=== PATIENT | male | born 1980 | race African-American/Black ===

== ENCOUNTER 2017-02-05 14:52 | Emergency (ER) | payer MEDICAID, SELFPAY ==
[~2017-02-05] VITALS: Ht 182.9 cm; Wt 95.5 kg
[2017-02-05 16:09] LABS: BASOPHILS # (AUTO) 0.09 K/uL (0.00-0.20); BASOPHILS % (AUTO) 1.6 % (0.0-2.0); EOSINOPHILS % (AUTO) 5.56 % (1.0-6.0); HEMATOCRIT 40.2 % (41-53); HEMOGLOBIN 13.1 g/dL (13.5-17.5); LYMPHOCYTES # (AUTO) 2.1 K/uL (1.0-4.8); LYMPHOCYTES % (AUTO) 39.5 % (22.0-44.0); MEAN CORPUSCULAR HEMOGLOBIN 26.7 pg (26.0-34.0); MEAN CORPUSCULAR HGB CONC 32.6 G/dL (31.0-37.0); MEAN CORPUSCULAR VOLUME 82 fL (80-100); MONOCYTES # (AUTO) 0.4 K/uL (0.1-1.0); MONOCYTES % (AUTO) 7.4 % (2.0-9.0); NEUTROPHILS # (AUTO) 2.5 K/uL (1.8-7.7); NEUTROPHILS % (AUTO) 45.9 % (40.0-70.0); PLATELET COUNT (AUTO) 198 K/uL (150-450); RED CELL DISTRIBUTION WIDTH 15.5 % (11.5-14.5)
[2017-02-05 16:21] LABS: ANION GAP 11 mmol/L (8-16); CALCIUM, TOTAL 8.7 mg/dL (8.8-10.5); CARBON DIOXIDE 25 mmol/L (22-29); CHLORIDE 103 mmol/L (98-107); CREATININE 1.24 mg/dL (0.60-1.30); GLOMERULAR FILTR. RATE CALC > 60 mL/min (>60); GLUCOSE,RANDOM 121 mg/dL (70-110); POTASSIUM 4.1 mmol/L (3.5-5.1); SODIUM SERUM 139 mmol/L (136-145); UREA NITROGEN, BLOOD 12 mg/dL (7-18)
[2017-02-05 16:22] LABS: AMPHET/METH SCREEN,URINE NEGATIVE (NEGATIVE); BARBITURATE SCREEN, URINE NEGATIVE (NEGATIVE); BENZODIAZEPINES SCREEN,URINE NEGATIVE (NEGATIVE); CANNABINOID SCREEN,URINE NEGATIVE (NEGATIVE); COCAINE SCREEN,URINE NEGATIVE (NEGATIVE); METHADONE SCREEN, URINE NEGATIVE (NEGATIVE); OPIATE SCREEN,URINE NEGATIVE (NEGATIVE)
[2017-02-05 16:24] LABS: PHENCYCLIDINE SCREEN,URINE NEGATIVE (NEGATIVE)
[2017-02-05 16:26] LABS: ALANINE AMINOTRANSFERASE 38 U/L (12-78); ALKALINE PHOSPHATASE 59 U/L (46-116); ASPARTATE AMINOTRANSFERASE 76 U/L (15-37); BILIRUBIN,TOTAL 0.7 mg/dL (0.1-1.0); TOTAL PROTEIN, SERUM 7.8 g/dL (6.4-8.2)
[2017-02-05 19:00] VITALS: BP 137/88
== END 2017-02-05 19:01 | disposition home or self-care (01) ==
LOC: EMS 14:54
DX: F31.9 Bipolar disorder, unspecified (principal)
CPT/HCPCS: 36415; 80053; 80307; 82962; 85025; 99285; G0480

== ENCOUNTER 2017-02-05 23:27 | Inpatient (IN) | payer MEDICAID, SELFPAY ==
[~2017-02-05] VITALS: Ht 182.9 cm; Wt 89.8 kg
[2017-02-05 23:47] LABS: GLUCOSE,POINT OF CARE 120 MG/DL (70-110)
[2017-02-06] MEDS ORDERED: LORazepam 2 MG TABLET PO PRN (04:15)
[2017-02-06] MEDS ORDERED: HALOPERIDOL 5 MG TABLET PO PRN (04:15)
[2017-02-06 04:25] LABS: BASOPHILS # (AUTO) 0.04 K/uL (0.00-0.20); BASOPHILS % (AUTO) 0.7 % (0.0-2.0); EOSINOPHILS # (AUTO) 0.36 K/uL (0.00-0.70); EOSINOPHILS % (AUTO) 6.56 % (1.0-6.0); HEMOGLOBIN 13.2 g/dL (13.5-17.5); LYMPHOCYTES # (AUTO) 2.4 K/uL (1.0-4.8); LYMPHOCYTES % (AUTO) 44.2 % (22.0-44.0); MEAN CORPUSCULAR HGB CONC 32.9 G/dL (31.0-37.0); MEAN CORPUSCULAR VOLUME 82 fL (80-100); MONOCYTES # (AUTO) 0.6 K/uL (0.1-1.0); MONOCYTES % (AUTO) 10.5 % (2.0-9.0); NEUTROPHILS # (AUTO) 2.1 K/uL (1.8-7.7); PLATELET COUNT (AUTO) 177 K/uL (150-450); RED BLOOD CELL COUNT(AUTO) 4.88 MIL/uL (4.50-5.90); RED CELL DISTRIBUTION WIDTH 14.9 % (11.5-14.5)
[2017-02-06 04:29] LABS: ANION GAP 6 mmol/L (8-16); CALCIUM, TOTAL 8.4 mg/dL (8.8-10.5); CARBON DIOXIDE 27 mmol/L (22-29); CHLORIDE 105 mmol/L (98-107); GLOMERULAR FILTR. RATE CALC > 60 mL/min (>60); GLUCOSE,RANDOM 94 mg/dL (70-110); POTASSIUM 3.9 mmol/L (3.5-5.1); SODIUM SERUM 138 mmol/L (136-145); UREA NITROGEN, BLOOD 15 mg/dL (7-18)
[2017-02-06] MEDS ORDERED: DiphenhydrAMINE HCL 50 MG/ML VIAL ONE (04:30)
[2017-02-06] MEDS ORDERED: HALOPERIDOL LACTATE 5 MG/ML VIAL ONE (04:30)
[2017-02-06] MEDS ORDERED: LORazepam 2 MG/ML VIAL ONE (04:30)
[2017-02-06 04:35] LABS: ALANINE AMINOTRANSFERASE 37 U/L (12-78); ALBUMIN 3.6 g/dL (3.4-5.0); ALKALINE PHOSPHATASE 52 U/L (46-116); ASPARTATE AMINOTRANSFERASE 67 U/L (15-37); BILIRUBIN,TOTAL 0.7 mg/dL (0.1-1.0); TOTAL PROTEIN, SERUM 6.8 g/dL (6.4-8.2)
[2017-02-06] MEDS: HALOPERIDOL 5 MG TABLET PO ONE ×2 (04:35→04:54)
[2017-02-06] MEDS: DiphenhydrAMINE HCL 25 MG CAPSULE PO ONE ×2 (04:35→04:54)
[2017-02-06] MEDS: LORazepam 2 MG TABLET PO ONE ×2 (04:35→04:53)
[2017-02-06] MEDS ORDERED: LORazepam 2 MG/ML VIAL IM ONE (04:45)
[2017-02-06] MEDS ORDERED: DiphenhydrAMINE HCL 50 MG/ML VIAL IM ONE (04:45)
[2017-02-06] MEDS ORDERED: HALOPERIDOL LACTATE 5 MG/ML VIAL IM ONE (04:45)
[2017-02-06 05:41] VITALS: BP 119/64
[2017-02-06] MEDS ORDERED: INFLUENZA VIRUS VACCINE QVS 2017-18 (3YR+)/PF 60 MCG/0.5 ML SYRINGE IM ONE (06:00)
[2017-02-06] MEDS ORDERED: PNEUMOCOCCAL VACCINE POLYVALENT 0.5 ML VIAL [PPSV23] IM ONE (06:00)
[2017-02-06 07:37] LABS: GLUCOMETER DEV NAME(LOC) BV2N3; GLUCOSE,POINT OF CARE 92 MG/DL (70-110)
[2017-02-06] MEDS ORDERED: BACITRACIN 28.4 GM OINTMENT TP PRN (08:00)
[2017-02-06] MEDS ORDERED: MAG HYDROX/AL HYDROX/SIMETH ES 30 ML SUSPENSION UDCUP PO PRN (08:00)
[2017-02-06] MEDS ORDERED: ONDANSETRON HCL 4 MG TABLET PO PRN (08:00)
[2017-02-06] MEDS ORDERED: ALBUTEROL SULFATE HFA 90 MCG/PUFF 8 GM INHALER IH PRN (08:00)
[2017-02-06] MEDS ORDERED: IBUPROFEN 600 MG TABLET PO PRN (08:00)
[2017-02-06] MEDS ORDERED: BENZOCAINE/MENTHOL LOZENGE MM PRN (08:00)
[2017-02-06] MEDS ORDERED: MAGNESIUM HYDROXIDE SUSPENSION 30 ML UDCUP PO PRN (08:00)
[2017-02-06] MEDS ORDERED: ACETAMINOPHEN 325 MG TABLET PO PRN (08:00)
[2017-02-06] MEDS ORDERED: LOPERAMIDE HCL 2 MG CAPSULE PO PRN (08:00)
[2017-02-06] MEDS ORDERED: PETROLATUM,WHITE 71 GM JELLY TP PRN (08:00)
[2017-02-06] MEDS ORDERED: CloNIDine HCL 0.1 MG TABLET PO PRN (08:00)
[2017-02-06 08:28] VITALS: BP 110/60
[2017-02-06] MEDS: SERTRALINE HCL 50 MG TABLET PO SCH (11:15)
[2017-02-06 16:28] VITALS: BP 116/86
[2017-02-07 00:56] VITALS: BP 126/59
[2017-02-07 08:05] LABS: HEMOGLOBIN A1C 5.9 % (4.5-6.2)
[2017-02-07 08:10] VITALS: BP 117/71
[2017-02-07] MEDS: SERTRALINE HCL 50 MG TABLET PO SCH (08:10)
[2017-02-07 09:32] LABS: CHOL/HDL RATIO 2.2 (4.2-7.3); THYROID STIMULATING HORMONE 0.47 uIU/mL (0.36-3.74)
[2017-02-07 16:02] VITALS: BP 123/70
[2017-02-07] MEDS: ZOLPIDEM TARTRATE 10 MG TABLET PO PRN (21:08)
[2017-02-07 23:29] LABS: GLUCOMETER DEV NAME(LOC) BV2N3; GLUCOSE,POINT OF CARE 111 MG/DL (70-110)
[2017-02-08 04:27] VITALS: BP 111/63
[2017-02-08 08:30] VITALS: BP 122/69
[2017-02-08] MEDS: SERTRALINE HCL 50 MG TABLET PO SCH (08:30)
[2017-02-08 16:30] VITALS: BP 109/63
[2017-02-08] MEDS: ZOLPIDEM TARTRATE 10 MG TABLET PO PRN (20:46)
[2017-02-09 00:40] VITALS: BP 124/61
[2017-02-09] MEDS: SERTRALINE HCL 50 MG TABLET PO SCH (08:10)
[2017-02-09 08:20] VITALS: BP 125/86
[2017-02-09] MEDS ORDERED: SERT50TA12 PO (11:04)
[2017-02-09] MEDS ORDERED: ALBU8HFA IH (11:15)
== END 2017-02-09 15:45 | disposition home or self-care (01) | DRG 751 ==
LOC: EMS 23:29 → B2S 02-06 04:15
PROVIDERS: ADMIT Psychiatry & Neurology Child & Adolescent Psychiatry; ATTEND Psychiatry & Neurology Child & Adolescent Psychiatry
DX: F33.2 Major depressive disorder, recurrent severe without psychotic features (principal); R45.851 Suicidal ideations; E83.51 Hypocalcemia; E66.9 Obesity, unspecified; G47.00 Insomnia, unspecified; R73.9 Hyperglycemia, unspecified; R74.0 Nonspecific elevation of levels of transaminase and lactic acid dehydrogenase [LDH]; Z59.0 Homelessness; Z68.26 Body mass index [BMI] 26.0-26.9, adult
CPT/HCPCS: 80074; 82306; 82962; 83036; 84443; 96372; 99285; G0480; J1200; J1630; J2060; J3535

== ENCOUNTER 2018-07-02 12:32 | Emergency (ER) | payer MEDICAID ==
[~2018-07-02] VITALS: Ht 182.9 cm; Wt 100.0 kg
[~2018-07-02 12:32] MED LIST: ALBU8HFA IH; SERT50TA12 PO
[2018-07-02 16:54] VITALS: BP 137/51
[2018-07-02 19:44] LABS: GLUCOSE,POINT OF CARE 85 MG/DL (70-110)
== END 2018-07-02 17:23 | disposition home or self-care (01) ==
LOC: EMS 12:33
DX: F32.9 Major depressive disorder, single episode, unspecified (principal); E11.9 Type 2 diabetes mellitus without complications; F12.90 Cannabis use, unspecified, uncomplicated

== ENCOUNTER 2019-08-04 10:30 | Inpatient (IN) | payer MEDICARE, MEDICAID ==
[~2019-08-04] VITALS: Ht 185.4 cm; Wt 97.7 kg
[~2019-08-04 10:30] MED LIST changes: -ALBU8HFA IH
[2019-08-04] MEDS ORDERED: RISP2 PO (10:44)
[2019-08-04] MEDS ORDERED: HALOPERIDOL 5 MG TABLET PO PRN (12:30)
[2019-08-04] MEDS ORDERED: LORazepam 2 MG TABLET PO PRN (12:30)
[2019-08-04] MEDS ORDERED: ZOLPIDEM TARTRATE 10 MG TABLET PO PRN (12:30)
[2019-08-04 13:06] LABS: ANION GAP 8 mmol/L (8-16); CALCIUM, TOTAL 8.7 mg/dL (8.8-10.5); CARBON DIOXIDE 28 mmol/L (22-29); CHLORIDE 107 mmol/L (98-107); CREATININE 1.45 mg/dL (0.60-1.30); GLOMERULAR FILTR. RATE CALC > 60 mL/min (>60); GLUCOSE,RANDOM 111 mg/dL (70-110); SODIUM SERUM 143 mmol/L (136-145); UREA NITROGEN, BLOOD 16 mg/dL (7-18)
[2019-08-04 13:08] LABS: BASOPHILS % (AUTO) 0.6 % (0.0-2.0); EOSINOPHILS % (AUTO) 2.1 % (1.0-6.0); HEMATOCRIT 41.3 % (41-53); HEMOGLOBIN 13.6 g/dL (13.5-17.5); LYMPHOCYTES # (AUTO) 1.9 K/uL (1.0-4.8); MEAN CORPUSCULAR HEMOGLOBIN 27.3 pg (26.0-34.0); MEAN CORPUSCULAR VOLUME 83 fL (80-100); MONOCYTES # (AUTO) 0.4 K/uL (0.1-1.0); MONOCYTES % (AUTO) 6.6 % (2.0-9.0); NEUTROPHILS # (AUTO) 3.4 K/uL (1.8-7.7); NEUTROPHILS % (AUTO) 58.7 % (40.0-70.0); PLATELET COUNT (AUTO) 235 K/uL (150-450); RED BLOOD CELL COUNT(AUTO) 4.99 MIL/uL (4.50-5.90); RED CELL DISTRIBUTION WIDTH 14.1 % (11.5-14.5)
[2019-08-04 13:12] LABS: ALANINE AMINOTRANSFERASE 19 U/L (12-78); ALBUMIN 3.9 g/dL (3.4-5.0); ALKALINE PHOSPHATASE 73 U/L (46-116); ASPARTATE AMINOTRANSFERASE 21 U/L (15-37); BILIRUBIN,TOTAL 0.8 mg/dL (0.1-1.0); TOTAL PROTEIN, SERUM 7.5 g/dL (6.4-8.2)
[2019-08-04 16:23] VITALS: BP 128/82
[2019-08-04] MEDS ORDERED: ALBUTEROL SULFATE HFA 90 MCG/PUFF 8 GM INHALER IH PRN (18:30)
[2019-08-04] MEDS ORDERED: MAG HYDROX/AL HYDROX/SIMETH ES 30 ML SUSPENSION UDCUP PO PRN (18:30)
[2019-08-04] MEDS ORDERED: ACETAMINOPHEN 325 MG TABLET PO PRN (18:30)
[2019-08-04] MEDS ORDERED: LOPERAMIDE HCL 2 MG CAPSULE PO PRN (18:30)
[2019-08-04] MEDS ORDERED: DOCUSATE SODIUM 100 MG CAPSULE PO PRN (18:30)
[2019-08-04] MEDS ORDERED: MAGNESIUM HYDROXIDE SUSPENSION 30 ML UDCUP PO PRN (18:30)
[2019-08-04] MEDS ORDERED: OMEPRAZOLE 20 MG CAPSULE PO PRN (18:30)
[2019-08-04] MEDS ORDERED: BENZOCAINE/MENTHOL LOZENGE MM PRN (18:30)
[2019-08-04] MEDS ORDERED: BACITRACIN 28.4 GM OINTMENT TP PRN (18:30)
[2019-08-04] MEDS ORDERED: PETROLATUM,WHITE 28 GM JELLY TP PRN (18:30)
[2019-08-04] MEDS ORDERED: CloNIDine HCL 0.1 MG TABLET PO PRN (18:30)
[2019-08-04] MEDS ORDERED: ONDANSETRON HCL 4 MG TABLET PO PRN (18:30)
[2019-08-04] MEDS: IBUPROFEN 600 MG TABLET PO PRN (19:32)
[2019-08-04] MEDS ORDERED: PNEUMOCOCCAL VACCINE POLYVALENT 0.5 ML VIAL [PPSV23] IM ONE (20:30)
[2019-08-05] VITALS (7 sets, daily range): BP systolic 111–127; BP diastolic 70–86
[2019-08-05] MEDS: IBUPROFEN 600 MG TABLET PO PRN (08:02)
[2019-08-05 08:13] LABS: CHOL/HDL RATIO 1.8 (4.2-7.3)
[2019-08-05] MEDS: TERBINAFINE HCL 1% 30 GM CREAM TP SCH ×2 (10:09→17:09)
[2019-08-06 06:20] VITALS: BP 129/80
[2019-08-06] MEDS: TERBINAFINE HCL 1% 30 GM CREAM TP SCH ×2 (08:51→17:03)
[2019-08-06] MEDS: RisperiDONE 2 MG TABLET PO SCH ×2 (08:51→17:01)
[2019-08-06] MEDS: DIVALPROEX SODIUM 500 MG DR TABLET PO SCH ×2 (08:51→17:01)
[2019-08-06 09:21] VITALS: BP 146/78
[2019-08-06 16:10] VITALS: BP 123/76
[2019-08-07 00:52] VITALS: BP 144/60
[2019-08-07] MEDS: DIVALPROEX SODIUM 500 MG DR TABLET PO SCH ×2 (08:44→16:12)
[2019-08-07] MEDS: RisperiDONE 2 MG TABLET PO SCH ×2 (08:44→16:12)
[2019-08-07 08:55] VITALS: BP 114/76
[2019-08-07] MEDS: TERBINAFINE HCL 1% 30 GM CREAM TP SCH ×2 (09:01→16:13)
[2019-08-07] MEDS ORDERED: DIVA-78 PO (09:40)
[2019-08-07 16:13] VITALS: BP 109/65
== END 2019-08-07 17:20 | disposition home or self-care (01) | DRG 885 ==
LOC: EMS 10:31 → B2X 14:22
PROVIDERS: ADMIT Psychiatry & Neurology Psychiatry; ATTEND Psychiatry & Neurology Psychiatry
DX: F25.9 Schizoaffective disorder, unspecified (principal); R45.851 Suicidal ideations; F31.13 Bipolar disorder, current episode manic without psychotic features, severe; F41.9 Anxiety disorder, unspecified; G47.00 Insomnia, unspecified; F12.90 Cannabis use, unspecified, uncomplicated; I10 Essential (primary) hypertension; F31.9 Bipolar disorder, unspecified; F39 Unspecified mood [affective] disorder; Z91.5 Personal history of self-harm
CPT/HCPCS: G0480

== ENCOUNTER 2019-08-11 06:22 | Inpatient (IN) | payer MEDICARE ==
[2019-08-11] MEDS ORDERED: HALOPERIDOL 5 MG TABLET PO PRN (08:30)
[2019-08-11] MEDS ORDERED: LORazepam 2 MG TABLET PO PRN (08:30)
[2019-08-11 09:05] VITALS: BP 131/69
[2019-08-11] MEDS ORDERED: ACETAMINOPHEN 325 MG TABLET PO PRN (12:00)
[2019-08-11] MEDS ORDERED: BENZOCAINE/MENTHOL LOZENGE MM PRN (12:00)
[2019-08-11] MEDS ORDERED: PETROLATUM,WHITE 28 GM JELLY TP PRN (12:00)
[2019-08-11] MEDS ORDERED: MAGNESIUM HYDROXIDE SUSPENSION 30 ML UDCUP PO PRN (12:00)
[2019-08-11] MEDS ORDERED: CloNIDine HCL 0.1 MG TABLET PO PRN (12:00)
[2019-08-11] MEDS ORDERED: OMEPRAZOLE 20 MG CAPSULE PO PRN (12:00)
[2019-08-11] MEDS ORDERED: MAG HYDROX/AL HYDROX/SIMETH ES 30 ML SUSPENSION UDCUP PO PRN (12:00)
[2019-08-11] MEDS ORDERED: ALBUTEROL SULFATE HFA 90 MCG/PUFF 8 GM INHALER IH PRN (12:00)
[2019-08-11] MEDS ORDERED: DOCUSATE SODIUM 100 MG CAPSULE PO PRN (12:00)
[2019-08-11] MEDS ORDERED: LOPERAMIDE HCL 2 MG CAPSULE PO PRN (12:00)
[2019-08-11] MEDS ORDERED: BACITRACIN 28.4 GM OINTMENT TP PRN (12:00)
[2019-08-11] MEDS ORDERED: ONDANSETRON HCL 4 MG TABLET PO PRN (12:00)
[2019-08-11 16:04] VITALS: BP 146/85
[2019-08-11] MEDS: RisperiDONE 2 MG TABLET PO SCH (16:31)
[2019-08-11] MEDS: DIVALPROEX SODIUM 500 MG DR TABLET PO SCH (16:31)
[2019-08-11] MEDS: TERBINAFINE HCL 1% 30 GM CREAM TP SCH (16:32)
[2019-08-11] MEDS: ZOLPIDEM TARTRATE 10 MG TABLET PO PRN (20:47)
[2019-08-12 05:47] VITALS: BP 130/82
[2019-08-12 08:06] VITALS: BP 124/74
[2019-08-12] MEDS: RisperiDONE 2 MG TABLET PO SCH ×2 (08:28→16:26)
[2019-08-12] MEDS: DIVALPROEX SODIUM 500 MG DR TABLET PO SCH ×2 (08:28→16:26)
[2019-08-12] MEDS: TERBINAFINE HCL 1% 30 GM CREAM TP SCH ×2 (08:29→16:55)
[2019-08-12 08:44] LABS: BASOPHILS % (AUTO) 0.5 % (0.0-2.0); EOSINOPHILS % (AUTO) 5.7 % (1.0-6.0); HEMATOCRIT 46.2 % (41-53); LYMPHOCYTES % (AUTO) 53.3 % (22.0-44.0); MEAN CORPUSCULAR HEMOGLOBIN 27.2 pg (26.0-34.0); MEAN CORPUSCULAR HGB CONC 32.5 G/dL (31.0-37.0); MEAN CORPUSCULAR VOLUME 84 fL (80-100); MONOCYTES # (AUTO) 0.4 K/uL (0.1-1.0); MONOCYTES % (AUTO) 7.6 % (2.0-9.0); NEUTROPHILS # (AUTO) 1.9 K/uL (1.8-7.7); NEUTROPHILS % (AUTO) 32.9 % (40.0-70.0); PLATELET COUNT (AUTO) 212 K/uL (150-450); RED BLOOD CELL COUNT(AUTO) 5.52 MIL/uL (4.50-5.90); RED CELL DISTRIBUTION WIDTH 14.3 % (11.5-14.5)
[2019-08-12 09:12] LABS: ALANINE AMINOTRANSFERASE 22 U/L (12-78); ALBUMIN 4.2 g/dL (3.4-5.0); ALKALINE PHOSPHATASE 75 U/L (46-116); ANION GAP 6 mmol/L (8-16); ASPARTATE AMINOTRANSFERASE 17 U/L (15-37); CALCIUM, TOTAL 9.4 mg/dL (8.8-10.5); CARBON DIOXIDE 32 mmol/L (22-29); CHLORIDE 102 mmol/L (98-107); CREATININE 1.37 mg/dL (0.60-1.30); GLOMERULAR FILTR. RATE CALC > 60 mL/min (>60); GLUCOSE,RANDOM 91 mg/dL (70-110); POTASSIUM 4.3 mmol/L (3.5-5.1); SODIUM SERUM 140 mmol/L (136-145); TOTAL PROTEIN, SERUM 8.1 g/dL (6.4-8.2); UREA NITROGEN, BLOOD 14 mg/dL (7-18)
[2019-08-12 09:42] LABS: APPEARANCE,URINE CLEAR (CLEAR); BILIRUBIN,URINE NEGATIVE (NEGATIVE); GLUCOSE, URINE (UA) NEGATIVE (NEGATIVE); KETONES,URINE NEGATIVE (NEGATIVE); LEUKOCYTE ESTERASE ,URINE NEGATIVE (NEGATIVE); NITRATE,URINE NEGATIVE (NEGATIVE); OCCULT BLOOD,URINE NEGATIVE (NEGATIVE); PROTEIN,URINE NEGATIVE (NEGATIVE); UROBILINOGEN,URINE 0.2 mg/dL (<=1.0)
[2019-08-12 10:00] LABS: AMPHET/METH SCREEN,URINE NEGATIVE (NEGATIVE); BARBITURATE SCREEN, URINE NEGATIVE (NEGATIVE); BENZODIAZEPINES SCREEN,URINE NEGATIVE (NEGATIVE); CANNABINOID SCREEN,URINE POSITIVE (NEGATIVE); COCAINE SCREEN,URINE NEGATIVE (NEGATIVE); METHADONE SCREEN, URINE NEGATIVE (NEGATIVE); OPIATE SCREEN,URINE NEGATIVE (NEGATIVE)
[2019-08-12 10:01] LABS: PHENCYCLIDINE SCREEN,URINE NEGATIVE (NEGATIVE)
[2019-08-12 16:04] VITALS: BP 139/84
[2019-08-12] MEDS: IBUPROFEN 600 MG TABLET PO PRN (18:20)
[2019-08-12] MEDS: ZOLPIDEM TARTRATE 10 MG TABLET PO PRN (20:45)
[2019-08-13 07:13] VITALS: BP 129/87
[2019-08-13] MEDS: TERBINAFINE HCL 1% 30 GM CREAM TP SCH ×2 (08:14→16:31)
[2019-08-13 08:27] VITALS: BP 131/74
[2019-08-13] MEDS: RisperiDONE 2 MG TABLET PO SCH ×2 (09:00→16:32)
[2019-08-13] MEDS: DIVALPROEX SODIUM 500 MG DR TABLET PO SCH ×2 (09:00→16:32)
[2019-08-13 09:02] LABS: CHOL/HDL RATIO 1.9 (4.2-7.3)
[2019-08-13 16:03] VITALS: BP 130/64
[2019-08-13] MEDS: ZOLPIDEM TARTRATE 10 MG TABLET PO PRN (20:54)
[2019-08-14 02:50] VITALS: BP 118/82
[2019-08-14 08:09] VITALS: BP 140/82
[2019-08-14] MEDS: CHOLECALCIFEROL (VIT D3) 1,000 UNITS [25 MCG] TABLET PO SCH (08:15)
[2019-08-14] MEDS: CYANOCOBALAMIN 100 MCG TABLET PO SCH (08:15)
[2019-08-14] MEDS: TERBINAFINE HCL 1% 30 GM CREAM TP SCH ×2 (08:16→16:36)
[2019-08-14] MEDS: RisperiDONE 2 MG TABLET PO SCH ×3 (08:16→17:21)
[2019-08-14] MEDS: DIVALPROEX SODIUM 500 MG DR TABLET PO SCH ×3 (08:16→17:21)
[2019-08-14] MEDS ORDERED: CHOLECALCIFEROL (VIT D3) 400 UNITS [10 MCG] TABLET PO SCH (09:00)
[2019-08-14 16:10] VITALS: BP 136/78
[2019-08-15 02:58] VITALS: BP 114/75
[2019-08-15 08:11] VITALS: BP 130/82
[2019-08-15] MEDS: CYANOCOBALAMIN 100 MCG TABLET PO SCH (08:40)
[2019-08-15] MEDS: CHOLECALCIFEROL (VIT D3) 1,000 UNITS [25 MCG] TABLET PO SCH (08:40)
[2019-08-15] MEDS: DIVALPROEX SODIUM 500 MG DR TABLET PO SCH ×2 (08:41→16:35)
[2019-08-15] MEDS: RisperiDONE 2 MG TABLET PO SCH ×2 (08:41→16:35)
[2019-08-15] MEDS: TERBINAFINE HCL 1% 30 GM CREAM TP SCH ×2 (09:36→16:37)
[2019-08-15] MEDS: IBUPROFEN 600 MG TABLET PO PRN (10:00)
[2019-08-15 16:03] VITALS: BP 127/75
[2019-08-16 00:12] VITALS: BP 137/89
[2019-08-16 08:04] VITALS: BP 115/72
[2019-08-16] MEDS: CYANOCOBALAMIN 100 MCG TABLET PO SCH (09:06)
[2019-08-16] MEDS: CHOLECALCIFEROL (VIT D3) 1,000 UNITS [25 MCG] TABLET PO SCH (09:06)
[2019-08-16] MEDS: TERBINAFINE HCL 1% 30 GM CREAM TP SCH ×2 (09:07→16:27)
[2019-08-16] MEDS: RisperiDONE 2 MG TABLET PO SCH (09:09)
[2019-08-16] MEDS: DIVALPROEX SODIUM 500 MG DR TABLET PO SCH (09:10)
[2019-08-16] MEDS ORDERED: DIVA-78 PO ×2 (16:08→16:13)
[2019-08-16] MEDS ORDERED: RISP2 PO (16:09)
[2019-08-16] MEDS ORDERED: CHOL100018 PO (16:10)
[2019-08-16] MEDS ORDERED: CYAN100T3 PO (16:10)
== END 2019-08-16 16:50 | disposition home or self-care (01) | DRG 885 ==
LOC: B2X 09:51
PROVIDERS: ADMIT Psychiatry & Neurology Psychiatry; ATTEND Psychiatry & Neurology Psychiatry
DX: F31.9 Bipolar disorder, unspecified (principal); F12.90 Cannabis use, unspecified, uncomplicated; F41.9 Anxiety disorder, unspecified; G47.00 Insomnia, unspecified; I10 Essential (primary) hypertension
CPT/HCPCS: 80307; 87081